=== PATIENT | male | born 1995 | race Hispanic/Latino ===

== ENCOUNTER 2019-02-16 11:01 | Inpatient (IN) | payer OTHER ==
[~2019-02-16] VITALS: Ht 165.1 cm; Wt 99.4 kg
[2019-02-16 11:33] LABS: APPEARANCE,URINE Clear (CLEAR); BILIRUBIN,URINE Negative (NEGATIVE); COLOR,URINE Yellow (YELLOW); GLUCOSE, URINE (UA) Negative (NEGATIVE); KETONES,URINE Trace mg/dL (NEGATIVE); LEUKOCYTE ESTERASE ,URINE Negative (NEGATIVE); NITRATE,URINE Negative (NEGATIVE); OCCULT BLOOD,URINE Negative (NEGATIVE); PH,URINE 5.5 (5.0-8.0); PROTEIN,URINE Negative (NEGATIVE)
[2019-02-16 11:37] LABS: AMPHET/METH SCREEN,URINE NEGATIVE (NEGATIVE); BARBITURATE SCREEN, URINE NEGATIVE (NEGATIVE); BENZODIAZEPINES SCREEN,URINE NEGATIVE (NEGATIVE); CANNABINOID SCREEN,URINE NEGATIVE (NEGATIVE); COCAINE SCREEN,URINE NEGATIVE (NEGATIVE); OPIATE SCREEN,URINE NEGATIVE (NEGATIVE); PHENCYCLIDINE SCREEN,URINE NEGATIVE (NEGATIVE)
[2019-02-16] MEDS ORDERED: ASPIRIN 81MG TAB.CHEW ONE (11:39)
[2019-02-16] MEDS ORDERED: NITROGLYCERIN 1GM/1 INCH PACKET TD ONE ×2 (11:40→12:15)
[2019-02-16] MEDS ORDERED: NITROGLYCERIN 0.4 MG SL TAB SL ONE (11:41)
[2019-02-16 11:43] LABS: BACTERIA,URINE Rare /HPF (None Seen); MUCUS,URINE Few LPF (None Seen); RBC,URINE 0-1 /HPF (0-1); SQUAMOUS EPITHELIAL CELL,UR Rare /HPF (0-2); WBC,URINE 0-1 /HPF (0-1)
[2019-02-16 11:59] LABS: BASOPHILS % (AUTO) 0.6 % (0.0-5.0); EOSINOPHILS % (AUTO) 2.8 % (0.0-8.0); HEMATOCRIT 44.9 % (42-54); LYMPHOCYTES % (AUTO) 34.3 % (21.0-51.0); MEAN CORPUSCULAR HEMOGLOBIN 32.1 pg (27.0-33.0); MEAN CORPUSCULAR VOLUME 89.1 fL (79-99); MONOCYTES % (AUTO) 8.6 % (3.0-13.0); NEUTROPHILS % (AUTO) 53.7 % (40.0-77.0); NUCLEATED RED BLOOD CELLS 0.2 % (0.0-0.19); PLATELET COUNT (AUTO) 285 K/uL (130-400); RED BLOOD CELL COUNT(AUTO) 5.05 MIL/uL (4.50-6.20); RED CELL DISTRIBUTION WIDTH 12.5 % (11.0-15.5); WHITE BLOOD COUNT (AUTO) 10.5 K/uL (4.8-10.8)
[2019-02-16 12:06] LABS: CREATININE 1.1 mg/dL (0.5-1.5); POTASSIUM 3.8 mmol/L (3.5-5.1)
[2019-02-16] MEDS ORDERED: ONDANSETRON HCL 4 MG/2 ML VIAL ONE ×2 (12:06→13:37)
[2019-02-16] MEDS ORDERED: MORPHINE SULFATE 4 MG/1ML SYG ONE (12:06)
[2019-02-16 12:10] LABS: ALBUMIN 4.3 g/dL (3.5-5.0); BILIRUBIN,TOTAL 0.4 mg/dL (0.2-1.0); TOTAL PROTEIN, SERUM 8.2 g/dL (6.0-8.3)
[2019-02-16] MEDS ORDERED: LIDOCAINE HCL 2% VISCOUS 15 ML UDCUP ONE (13:56)
[2019-02-16] MEDS ORDERED: MAG HYDROX/AL HYDROX/SIMETH ES 30 ML SUSP UDCUP ONE (13:57)
[2019-02-16] MEDS ORDERED: ONDANSETRON HCL 4 MG/2 ML VIAL IV PRN (16:45)
[2019-02-16] MEDS ORDERED: HYDRALAZINE HCL 20 MG/ML VIAL IV PRN (16:45)
[2019-02-16] MEDS ORDERED: LACTULOSE 20 GM/30 ML UDCUP PO PRN (16:45)
[2019-02-16] MEDS: NITROGLYCERIN 1GM/1 INCH PACKET TD SCH ×2 (16:45→22:44)
[2019-02-16] MEDS ORDERED: ACETAMINOPHEN 325 MG TAB PO PRN ×2 (16:45)
[2019-02-16] MEDS ORDERED: MORPHINE SULFATE 2 MG/ML 1ML SYG IV PRN (16:45)
[2019-02-16] MEDS ORDERED: MORPHINE SULFATE 2 MG/ML 1ML SYG ONE (17:19)
[2019-02-16 18:07] LABS: TROPONIN I 5.33 ng/mL (0.00-0.06)
[2019-02-16 18:48] LABS: HEMOGLOBIN A1C 5.3 % (4.0-6.0)
[2019-02-16] MEDS ORDERED: SODIUM CHLORIDE 0.9% 500ML 500 ML IV SCH (18:57)
[2019-02-16] MEDS ORDERED: IOHEXOL-350 50ML VIAL IV ONE (19:24)
[2019-02-16] MEDS ORDERED: IOHEXOL 350 MG/ML 100ML INFUS..BTL IV ONE (19:24)
[2019-02-16] MEDS ORDERED: BIVALIRUDIN 250 MG/VIAL IV ONE (19:24)
[2019-02-16] MEDS ORDERED: NITROGLYCERIN 5 MG/ML 10 ML VIAL IV ONE (19:24)
[2019-02-16] MEDS ORDERED: LIDOCAINE HCL 2% 20ML ONE (19:24)
[2019-02-16] MEDS ORDERED: HEPARIN SODIUM 1000UNIT/ML 10ML VIAL ONE (19:26)
[2019-02-16] MEDS ORDERED: IOHEXOL-350 75 ML VIAL IV ONE ×2 (19:53→20:23)
[2019-02-16] MEDS ORDERED: CLOPIDOGREL BISULFATE 300 MG TAB ONE (19:58)
[2019-02-16] MEDS ORDERED: EPTIFIBATIDE 75MG/100ML BOTTLE 100 ML IV ONE (20:07)
[2019-02-16] MEDS ORDERED: EPTIFIBATIDE 2 MG/ML 10 ML VIAL IVP ONE (20:07)
[2019-02-16] MEDS ORDERED: HEPARIN 25000 UNITS/250 ML D5W 250 ML IV ONE (20:40)
[2019-02-16] MEDS ORDERED: ONDANSETRON HCL 4 MG/2 ML VIAL IVP PRN (20:45)
[2019-02-16] MEDS ORDERED: TEMAZEPAM 30 MG CAP PO PRN (20:45)
[2019-02-16] MEDS ORDERED: HEPARIN 25000 UNITS/250 ML D5W 250 ML IV SCH (20:45)
[2019-02-16] MEDS ORDERED: ONDANSETRON HCL 4 MG/2 ML VIAL IVP SCH (20:45)
[2019-02-16] MEDS ORDERED: MORPHINE SULFATE 5 MG/ML VIAL IVP SCH ×2 (20:45)
[2019-02-16] MEDS ORDERED: EPTIFIBATIDE 75MG/100ML BOTTLE 100 ML IV PRN (20:45)
[2019-02-16] MEDS ORDERED: ACETAMINOPHEN-CODEINE 300/30MG TAB PO PRN ×2 (20:45)
[2019-02-16] MEDS ORDERED: METOPROLOL TARTRATE 25 MG TAB PO SCH ×2 (21:00)
[2019-02-16] MEDS ORDERED: FAMOTIDINE/PF 20 MG/2 ML VIAL IV SCH (21:00)
--- NOTE | 2019-02-16 21:15 | NUR ---
PT ARRIVED TO UNIT AT THIS TIME. FROM [employer]. STATUS [facility], HAS CARDIAC SHEATH IN PLACE. 6 [address]. PAIN STATED TO SITE. AT BEDSIDE. AAO3. PERRLA. ACTIVE BOWEL SOUNDS. PT REQUESTING FOOD. GROIN SITE IS VISIBLE. SHEATH IN PLACE. PT ON HEPARIN AT 1800UNITS.HR PT IS ON BEDREST. PT AWARE TO LAY FLAT UNTIL THE AM.
[2019-02-16 22:39] LABS: BASOPHILS % (AUTO) 0.4 % (0.0-5.0); EOSINOPHILS % (AUTO) 0.7 % (0.0-8.0); HEMATOCRIT 43.3 % (42-54); LYMPHOCYTES % (AUTO) 26.6 % (21.0-51.0); MEAN CORPUSCULAR HGB CONC 34.7 g/dL (32.0-36.0); MEAN CORPUSCULAR VOLUME 89.3 fL (79-99); MONOCYTES % (AUTO) 8.9 % (3.0-13.0); NEUTROPHILS % (AUTO) 63.4 % (40.0-77.0); PLATELET COUNT (AUTO) 304 K/uL (130-400); RED BLOOD CELL COUNT(AUTO) 4.85 MIL/uL (4.50-6.20); RED CELL DISTRIBUTION WIDTH 12.5 % (11.0-15.5); WHITE BLOOD COUNT (AUTO) 12.9 K/uL (4.8-10.8)
[2019-02-16] MEDS: ATORVASTATIN CALCIUM 20 MG TABLET PO SCH (22:47)
[2019-02-16 23:00] VITALS: BP 133/86
--- NOTE | 2019-02-16 23:20 | NUR ---
PTT OVER 120. HEPARIN ON HOLD FOR 60 MINUTES.
[2019-02-17 01:01] LABS: TROPONIN I 92.03 ng/mL (0.00-0.06)
--- NOTE | 2019-02-17 01:15 | NUR ---
NOTIFIED DR. SINGH NOTIFIED ABOUT CRITICAL LABS OF TROP 92, CK 1880. NO NEW ORDERS.
[2019-02-17] MEDS: SODIUM CHLORIDE 0.9% 1000ML 1,000 ML IV SCH ×3 (02:00→12:35)
[2019-02-17 03:00] VITALS: BP 127/56
[2019-02-17 03:46] LABS: HEMATOCRIT 41.2 % (42-54); MEAN CORPUSCULAR HEMOGLOBIN 31.7 pg (27.0-33.0); MEAN CORPUSCULAR HGB CONC 35.4 g/dL (32.0-36.0); MEAN CORPUSCULAR VOLUME 89.6 fL (79-99); PLATELET COUNT (AUTO) 266 K/uL (130-400); RED BLOOD CELL COUNT(AUTO) 4.59 MIL/uL (4.50-6.20); RED CELL DISTRIBUTION WIDTH 12.5 % (11.0-15.5); WHITE BLOOD COUNT (AUTO) 10.5 K/uL (4.8-10.8)
[2019-02-17 04:02] LABS: POTASSIUM 4.1 mmol/L (3.5-5.1)
--- NOTE | 2019-02-17 06:30 | NUR ---
DR. FRANCO ORDERED TO STOP HEPARIN DRIP AND ALSO INTEGRILIN IV. ORDERED TO DC LINE ONCE PTT LEVELS ARE WITHIN RANGE
[2019-02-17 07:51] VITALS: BP 131/70
[2019-02-17] MEDS ORDERED: ENOXAPARIN SODIUM 40 MG/0.4 ML SYRINGE SQ SCH (09:00)
[2019-02-17] MEDS ORDERED: ATORVASTATIN CALCIUM 40 MG TABLET PO SCH (09:00)
[2019-02-17] MEDS ORDERED: ASPIRIN 325 MG TABLET PO SCH (09:00)
[2019-02-17 09:26] LABS: TROPONIN I 32.31 ng/mL (0.00-0.06)
[2019-02-17] MEDS ORDERED: MORPHINE SULFATE 5 MG/ML VIAL IVP SCH (10:15)
[2019-02-17] MEDS: CARVEDILOL 6.25 MG TABLET PO SCH ×2 (10:48→20:12)
[2019-02-17] MEDS: LOSARTAN 50 MG TABLET PO SCH (10:48)
[2019-02-17] MEDS: PANTOPRAZOLE SODIUM 40 MG TABLET.DR PO SCH (10:48)
[2019-02-17] MEDS: NITROGLYCERIN 1GM/1 INCH PACKET TD SCH ×2 (10:49→16:45)
--- NOTE | 2019-02-17 10:58 | NUR ---
DC PLAN VISITED WITH PATIENT. PATIENT LIVES WITH SPOUSE. INDEPENDENT ABLE TO PERFORM ADL'S. PATIENT HAS NO SERVICES OR DME'S. FEELS SAFE TO RETURN HOME. GAVE LOW INCOME CLINIC INFO TO PATIENT. Addendum: 02/17/19 at 1100 by NICOLE BELLO RN CM Amended: Links added.
[2019-02-17 11:19] VITALS: BP 123/86
[2019-02-17 16:29] VITALS: BP 107/52
[2019-02-17] MEDS: CLOPIDOGREL BISULFATE 75 MG TAB PO SCH (16:47)
[2019-02-17] MEDS: ASPIRIN 81MG TAB.CHEW PO SCH (16:47)
[2019-02-17 19:50] VITALS: BP 101/52
[2019-02-17] MEDS: ATORVASTATIN CALCIUM 20 MG TABLET PO SCH (20:08)
[2019-02-17 23:00] VITALS: BP 114/60
[2019-02-18] MEDS: NITROGLYCERIN 1GM/1 INCH PACKET TD SCH ×2 (00:45→10:06)
[2019-02-18 04:06] LABS: HEMATOCRIT 40.1 % (42-54); MEAN CORPUSCULAR HEMOGLOBIN 31.3 pg (27.0-33.0); MEAN CORPUSCULAR HGB CONC 34.6 g/dL (32.0-36.0); MEAN CORPUSCULAR VOLUME 90.4 fL (79-99); PLATELET COUNT (AUTO) 283 K/uL (130-400); RED BLOOD CELL COUNT(AUTO) 4.43 MIL/uL (4.50-6.20); RED CELL DISTRIBUTION WIDTH 12.5 % (11.0-15.5); WHITE BLOOD COUNT (AUTO) 8.3 K/uL (4.8-10.8)
[2019-02-18 04:45] VITALS: BP 106/61
[2019-02-18 04:46] LABS: CREATININE 1.1 mg/dL (0.5-1.5); POTASSIUM 3.8 mmol/L (3.5-5.1)
[2019-02-18 05:19] LABS: TROPONIN I 13.81 ng/mL (0.00-0.06)
[2019-02-18 07:45] VITALS: BP 104/79
[2019-02-18] MEDS: ASPIRIN 81MG TAB.CHEW PO SCH (10:05)
[2019-02-18] MEDS: CARVEDILOL 6.25 MG TABLET PO SCH (10:06)
[2019-02-18] MEDS: PANTOPRAZOLE SODIUM 40 MG TABLET.DR PO SCH (10:06)
[2019-02-18] MEDS: LOSARTAN 50 MG TABLET PO SCH (10:06)
[2019-02-18] MEDS: CLOPIDOGREL BISULFATE 75 MG TAB PO SCH (10:06)
[2019-02-18 11:39] VITALS: BP 91/51
[2019-02-18 16:20] VITALS: BP 104/59
== END 2019-02-18 18:11 | disposition home or self-care (01) | DRG 247 ==
LOC: EDH 11:01 → EDHIP 11:02 → 2AH 21:16
PROVIDERS: ADMIT Internal Medicine; ATTEND Internal Medicine
PROC: 027035Z Dilation of Coronary Artery, One Artery with Two Drug-eluting Intraluminal Devices, Percutaneous Approach (ICD-10-PCS; principal; 2019-02-16)
PROC: 02C03ZZ Extirpation of Matter from Coronary Artery, One Artery, Percutaneous Approach (ICD-10-PCS; 2019-02-16)
PROC: 4A023N7 Measurement of Cardiac Sampling and Pressure, Left Heart, Percutaneous Approach (ICD-10-PCS; 2019-02-16)
PROC: B2111ZZ Fluoroscopy of Multiple Coronary Arteries using Low Osmolar Contrast (ICD-10-PCS; 2019-02-16)
DX: I21.4 Non-ST elevation (NSTEMI) myocardial infarction (principal); E78.5 Hyperlipidemia, unspecified; F17.200 Nicotine dependence, unspecified, uncomplicated; G89.29 Other chronic pain; I10 Essential (primary) hypertension; I25.110 Atherosclerotic heart disease of native coronary artery with unstable angina pectoris; Z83.3 Family history of diabetes mellitus; Z82.49 Family history of ischemic heart disease and other diseases of the circulatory system
CPT/HCPCS: 36415; 71045; 80048; 80053; 80061; 80305; 81001; 82550; 83036; 83874; 84484; 85025; 85027; 85347; 85378; 85730; 93005; 93306; 93454; C1769; C1887; C1894; C9606; G0378; J0583; J1327; J1644; J2270; J2405; J3490; J7030; Q9967